=== PATIENT | female | born 1990 | race Caucasian/White ===

== ENCOUNTER 2017-10-31 05:52 | Day surgery (SDC) | payer SELFPAY ==
--- NOTE | 2017-10-31 07:17 | HP ---
HISTORY OF PRESENT ILLNESS: Heather Villalpando is a 27-year-old female who has had acute onset of epig astric pain localizing to her right lower quadrant in the last 24-36 hours. She was seen at [facility] and CAT scan revealed changes consistent with appendicitis. The patient prior to th is had in the last several weeks has had right upper quadrant pain, back radiation, nausea and vomiti ng occurring intermittently. Her hemoglobin is 13.7, white count 9.2. Liver function tests are norm al. Urinalysis normal. CAT scan of abdomen and pelvis revealed changes consistent with appendicitis . ALLERGIES: PENICILLIN. TOBACCO: 1/2 pack per day. ALCOHOL: Socially. MEDICATIONS: None routinely. PAST SURGICAL HISTORY: ORIF leg. PAST MEDICAL HISTORY: Noncontributory. SOCIAL HISTORY: Patient is and has 1 child. 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 FAMILY HISTORY: Noncontributory. PHYSICAL EXAMINATION: VITAL SIGNS: Weight 200 pounds, 91 kilograms, 156/87, respiratory rate 20, 96 heart rate, 99.1 degre es. HEENT: Unremarkable. Sclerae nonicteric. LUNGS: Clear to auscultation. CARDIAC: Regular rate and rhythm without murmur or gallop. ABDOMEN: Soft, tenderness in right upper quadrant with guarding. Tenderness in right lower quadrant with guarding. EXTREMITIES: Unremarkable. Slightly obese. LABORATORY: Laboratories as noted above. ASSESSMENT AND PLAN: 1. Appendicitis. Recommend laparoscopic video appendectomy. Risk of infection, bleeding, visceral injury discussed, possibly open procedure discussed. 2. Symptoms of gallbladder disease. I would recommend stat gallbladder ultrasound and consider lapa roscopic cholecystectomy pending ultrasound findings. Possibilities of laparoscopic cholecystectomy including the risk of infection, bleeding, visceral and biliary injury and open cholecystectomy discu ssed. Questions answered. 3. Penicillin allergy. 4. Tobacco use. 5. Marijuana use.
[2017-10-31] MEDS ORDERED: Scopolamine 1.5 mg/72 hour Patch ONE (08:25)
[2017-10-31] MEDS ORDERED: Ketorolac Tromethamine 30 MG/ML VIAL ONE ×2 (08:25→10:32)
[2017-10-31] MEDS ORDERED: metroNIDAZOLE 500 MG/100 ML BAG ONE (08:25)
--- NOTE | 2017-10-31 08:38 | ULT ---
RIGHT UPPER QUADRANT ULTRASOUND: Date: 10/31/17 HISTORY: 27-year-old female with history of intermittent right-sided pain for 3 weeks. COMPARISON: 07/29/12. FINDINGS: Liver echogenicity is unremarkable. No evidence of gallstones, wall thickening, edema, or pericholecy stic fluid. Common bile duct 0.2 cm. Visualized pancreas and right kidney are unremarkable. Technolog ist indicated that the patient did have a positive Perez's sign, the reason of which was not apparen t. Apparently, the patient does have acute appendicitis and is scheduled for surgery this morning for acute appendicitis. IMPRESSION: Unremarkable right upper quadrant ultrasound. No evidence of gallstones or ductal dilatation. Patient did have a positive Perez's sign. POS: OFF
[2017-10-31] MEDS ORDERED: PROPOFOL 200 MG/20 ML VIAL ONE (10:32)
[2017-10-31] MEDS ORDERED: Metoclopramide HCl 10 MG/2 ML VIAL ONE (10:32)
[2017-10-31] MEDS ORDERED: Glycopyrrolate 0.2 MG/ML 5 ML SYRINGE ONE (10:32)
[2017-10-31] MEDS ORDERED: Succinylcholine Chloride 20 MG/ML 10 ml SYRINGE FS ONE (10:32)
[2017-10-31] MEDS ORDERED: Ondansetron HCl/PF 4 MG/2 ML Vial ONE (10:32)
[2017-10-31] MEDS ORDERED: Dexamethasone 20 MG/5 ML VIAL ONE (10:32)
[2017-10-31] MEDS ORDERED: Lidocaine 1% PF 5 ML VIAL ONE (10:32)
[2017-10-31] MEDS ORDERED: Bupivacaine HCl 0.5%/Epinephrine 1:200,000/PF 30 ml Vial ONE (11:06)
[2017-10-31] MEDS ORDERED: Fentanyl 100 MCG/2 ML VIAL ONE ×3 (11:07→13:01)
[2017-10-31] MEDS ORDERED: Midazolam HCl 2 mg/2 ml Vial ONE (12:29)
[2017-10-31] MEDS ORDERED: Meperidine HCl/PF 25 MG/ML VIAL ONE (12:34)
--- NOTE | 2017-10-31 13:04 | OP ---
DATE OF PROCEDURE: 10/31/2017 PREOPERATIVE DIAGNOSES: Acute appendicitis, chronic cholecystitis. POSTOPERATIVE DIAGNOSES: Acute appendicitis, chronic cholecystitis. PROCEDURES: Laparoscopic video appendectomy, laparoscopic cholecystectomy. SURGEON: Dr. Pop Tapia ANESTHESIA: General. Local 0.5% Marcaine with epinephrine 30 mL. INDICATIONS: The patient has had 3-4 weeks, intermittent epigastric right upper quadrant pain with b ack radiation and nausea associated with fatty food intake. She more recently experienced acute onse t of right lower quadrant pain. CAT scan at [facility], confirming appendicitis. Ultr asound of gallbladder prior to this operation was normal. I discussed with her prior to this operati on findings on ultrasound and gave her the opportunity of observing her gallbladder and performing a HIDA scan with ejection fraction later, but she requested a laparoscopic cholecystectomy as her husba nd has had this performed. I apprised her of the risks and benefits and felt that she did have chron ic cholecystitis based on her history and sonographic positive Perez sign with normal liver function tests. Plan is for laparoscopic cholecystectomy and appendectomy. PROCEDURE IN DETAIL: The patient was taken to the operating room where under general anesthesia, abd omen was prepared with ChloraPrep, draped in routine fashion. Local anesthetic infiltrated into the skin and subcutaneous tissue about each port site. Periumbilical incision made and pneumoperitoneum to 15 mmHg obtained with the Veress needle, replacing it with a 5 port. Right lateral subcostal inci jose j made mid clavicular anterior axillary lines and 5 mm ports placed. Right subxiphoid incision ma de and a 12 port placed. Appendix initially grasped and was slightly inflamed distally. Mesoappendi x taken down with the LigaSure, the stump of the appendix divided with Endo-ZIYAD blue load stapler. S tapled cecal stump was hemostatic and hemostasis ensured with clips. Irrigated, good hemostasis ensu red. The appendix removed and submitted to Pathology. Gallbladder then fundus grasped and reflected cephalad. Liver appeared to be normal. Infundibulum grasped and reflected laterally. Cystic arter y and duct dissected free. Critical view obtained. Cystic artery double clipped proximally, divided , and gallbladder dissected free from the liver bed, obtaining good hemostasis. ____ ____ final nan toneal attachments. Gallbladder and contents removed and gallbladder removed and submitted to Pathol inez. Good hemostasis ensured in gallbladder bed and the area of the appendectomy. Good hemostasis e nsured. Irrigant and pneumoperitoneum evacuated. All instruments were removed and all skin incision s approximated with interrupted subdermal 4-0 Monocryl and DermaGlue applied.
[2017-10-31] MEDS ORDERED: HYDROcodone/Acetaminophen 5/325 mg Tablet ONE ×2 (14:08)
== END 2017-10-31 14:48 | disposition home or self-care (01) ==
LOC: ERS 05:52
PROVIDERS: ATTEND Specialist
PROC: 0DTJ4ZZ Resection of Appendix, Percutaneous Endoscopic Approach (ICD-10-PCS; principal; 2017-10-31)
PROC: 0FT44ZZ Resection of Gallbladder, Percutaneous Endoscopic Approach (ICD-10-PCS; principal; 2017-10-31)
DX: K80.10 Calculus of gallbladder with chronic cholecystitis without obstruction (principal); K35.89 Other acute appendicitis; F17.210 Nicotine dependence, cigarettes, uncomplicated; E66.9 Obesity, unspecified; Z88.0 Allergy status to penicillin
CPT/HCPCS: 76705; 88304; 96361; 96374; J0131; J0670; J1100; J1885; J1956; J2001; J2175; J2250; J2405; J2704; J2765; J3010

== ENCOUNTER 2020-01-04 00:49 | Emergency (ER) | payer SELFPAY ==
[2020-01-04] MEDS ORDERED: Naproxen 500 MG TAB ONE (01:30)
--- NOTE | 2020-01-04 08:27 | RAD ---
Exam: XR Ankle Rt 3 View STANDARD HISTORY: Patient reports ankle buckling outward after standing up from couch. COMPARISON: 05/25/2005. FINDINGS: No acute fracture, dislocation, or other acute osseous abnormality is identified. No interval change compared to prior study. IMPRESSION: No acute osseous abnormality is identified. If the patient's symptoms persist, follow-up imaging is a dvised.
== END 2020-01-04 01:41 | disposition home or self-care (01) ==
LOC: ERS 00:49
DX: M25.471 Effusion, right ankle (principal); E66.9 Obesity, unspecified; J45.909 Unspecified asthma, uncomplicated; F17.210 Nicotine dependence, cigarettes, uncomplicated

== ENCOUNTER 2020-03-25 13:13 | Emergency (ER) | payer OTHER ==
--- NOTE | 2020-03-25 14:39 | RAD ---
RADIOGRAPH LEFT ANKLE 3 VIEWS: DATE: 03/25/2020 HISTORY: 29-year-old female with acute, traumatic left ankle pain from fall FINDINGS: Ankle mortise is congruent. There is no evidence of fracture. There is no subluxation or dislocation. There are no degenerative changes. Talar dome is maintained. IMPRESSION: No osseous abnormality.
[2020-03-25] MEDS ORDERED: Ketorolac Tromethamine 30 MG/ML VIAL ONE (14:41)
--- NOTE | 2020-03-25 14:41 | RAD ---
LEFT FOOT THREE VIEWS: 03/25/20 HISTORY: Foot pain status post fall. Soft tissue swelling on the dorsum of the foot. I do not see any underlying fracture. IMPRESSION: No evidence of fracture. POS: [facility]
== END 2020-03-25 15:10 | disposition home or self-care (01) ==
LOC: ERS 13:13
DX: S90.32XA Contusion of left foot, initial encounter (principal); J45.909 Unspecified asthma, uncomplicated; E66.9 Obesity, unspecified; F17.210 Nicotine dependence, cigarettes, uncomplicated; W01.0XXA Fall on same level from slipping, tripping and stumbling without subsequent striking against object, initial encounter
CPT/HCPCS: 96372; J1885